=== PATIENT | female | born 1975 | race Caucasian/White ===

== ENCOUNTER → 2021-08-13 08:23 | Outpatient (BNVA) | payer OTHER, SELFPAY | PROVIDERS: PCP Internal Medicine | DX: N20.0 Calculus of kidney (principal) | CPT/HCPCS: 99212 ==

== ENCOUNTER 2022-02-02 08:01 | Outpatient (REF) | payer OTHER, SELFPAY ==
--- NOTE | ~2022-02-02 | US_ITS ---
EXAMINATION: US RETROPERITONEAL LIMITED (RENAL ONLY) CLINICAL INFORMATION: Calculus of kidney. COMPARISON: US retroperitoneal limited (renal only) 04/03/2019 and 03/24/2018. CT abdomen and pelvis 03/29/2018. TECHNIQUE: Real-time imaging of the kidneys. FINDINGS: RIGHT KIDNEY: 8.3 x 3.3 x 4.9 cm (SAG x AP x TRV). The kidney is normal in size, contour, and echogenicity. Renal cortical thickness is normal. There is a 3 x 4 mm echogenic density with twinkle artifact in the lower pole suggestive of a stone. There is a 1.4 x 0.8 x 0.8 cm cyst in the upper pole. No hydronephrosis. LEFT KIDNEY: 11.5 x 4.3 x 7.2 cm (SAG x AP x TRV). The kidney is normal in size, contour, and echogenicity. Renal cortical thickness is normal. There is a 5 mm stone in the lower pole. No focal parenchymal lesions or hydronephrosis. US/US renal BI IMPRESSION: Bilateral renal stones. Small right renal cyst.
== END 2022-02-02 08:02 | disposition home or self-care (01) ==
LOC: HO.US 08:01
DX: N20.0 Calculus of kidney (principal)
CPT/HCPCS: 76775

== ENCOUNTER → 2022-02-10 09:52 | Outpatient (BNVA) | payer OTHER, SELFPAY | PROVIDERS: PCP Internal Medicine | DX: N20.0 Calculus of kidney (principal) | CPT/HCPCS: 99212 ==

== ENCOUNTER 2022-08-03 07:52 | Outpatient (REF) | payer OTHER, SELFPAY ==
--- NOTE | ~2022-08-03 | US_ITS ---
EXAMINATION: US RETROPERITONEAL LIMITED (RENAL ONLY) CLINICAL INFORMATION: Calculus of kidney. COMPARISON: Ultrasound retroperitoneal limited (renal only) 02/02/2022 . TECHNIQUE: Real-time imaging of the kidneys. FINDINGS: RIGHT KIDNEY: 10.1 x 4.9 x 4.4 cm (SAG x AP x TRV). The kidney is normal in size and echogenicity. Renal cortical thickness is normal. No hydronephrosis. 1.2 cm right upper pole cyst. 1.2 cm right mid renal cyst. 4 mm echogenicity in the lower pole, possibly a stone. LEFT KIDNEY: 12.6 x 5.3 x 5.4 cm (SAG x AP x TRV). The kidney is normal in size, contour, and echogenicity. Renal cortical thickness is normal. No focal parenchymal lesions or hydronephrosis. Echogenic, shadowing 6 mm right upper pole calculus. US/US renal BI IMPRESSION: No significant change from prior study.
== END 2022-08-03 07:53 | disposition home or self-care (01) ==
LOC: HO.US 07:52
DX: N20.0 Calculus of kidney (principal)
CPT/HCPCS: 76775

== ENCOUNTER 2023-01-07 09:59 | Outpatient (REF) | payer OTHER, SELFPAY ==
--- NOTE | ~2023-01-07 | XR_ITS ---
EXAMINATION: XR ABDOMEN KUB CLINICAL INDICATION: Renal calculus. COMPARISON: Renal ultrasound dated 08/03/2022, CT scan of the abdomen and pelvis dated 03/29/2018. TECHNIQUE: AP view of the abdomen. FINDINGS: A 0.6 cm radiopaque density overlies the region of the right kidney. No radiopaque densities are seen overlying the left kidney or along the expected courses of the ureters bilaterally. There is a nonobstructive bowel gas pattern. Mild gas and stool seen within the colon distally to the rectum. Mild facet arthropathy is seen at L4-L5 and L5-S1. An IUD is noted overlying the mid pelvis. XR/XR KUB IMPRESSION: 1. 0.6 cm radiopaque density overlying the region of the right kidney could represent the previously seen right intrarenal calculus.
== END 2023-01-07 10:00 | disposition home or self-care (01) ==
LOC: HO.XRAY 09:59
PROVIDERS: Visit Provider Urology
DX: N20.0 Calculus of kidney (principal)
CPT/HCPCS: 74018

== ENCOUNTER → 2023-01-11 08:47 | Outpatient (BNVA) | payer OTHER, SELFPAY | PROVIDERS: PCP Internal Medicine; Visit Provider Urology | DX: N20.0 Calculus of kidney (principal) | CPT/HCPCS: 99212 ==

== ENCOUNTER 2023-02-10 08:56 | Day surgery (SDC) | payer OTHER, SELFPAY ==
[2023-02-05 14:37] VITALS: BMI 35.7
--- NOTE | 2023-02-09 09:26 | P.CONAN_ITS ---
Documented by User: Komal Edgar NP 02/09/23 09:27 HPI - Anesthesia Eval Consult details Narrative: 47yo F for ESWL No previous PMFSH Active Problems Active Problems: All Active Problems (Updated 02/05/23 @ 14:40 by Luci Lei RN) Calcium nephrolithiasis (Acute) Past Medical History Medical History Arthritis Calcium nephrolithiasis Crohn disease Fibromyalgia Hx of nephrolithotomy with removal of calculi Kidney stone Positive PPD Family History Family History Mother Cancer HTN (hypertension) Father Oral cancer Surgical History Surgical History H/O bilateral breast reduction surgery H/O lumpectomy Hx of cystoscopy Hx of dilation and curettage Social History Social History Household Members: Spouse and Children Housing: House Are you a primary medicare specialist to a significant other at home: Yes (minor daughter) Do you presently have visiting nurse or other home services: No Alcohol intake: never Patient Tobacco Use Status: Former Tobacco user Quit Date: 2018 Tobacco use type: Cigarette Cigarettes Per Day: 20 Years Smoked: 20 Use of substances other than those prescribed or required for medical reasons: Yes Substance Use Frequency: Occasionally Have you been hit, kicked, punched, or otherwise hurt by someone within the past year? If so, by whom?: No Are you DNR?: No Advance Directives: No Advance Directives Information Provided: Yes Advance Directives on File: No Recently lost weight without trying: No Eating poorly because of decreased appetite: No Nutrition Risks: No Nutritional Risk Patient : No FDLMP: N/A : No Poor oral hygiene: No Meds Allergies Allergy/AdvReac Type Severity Reaction Status Date / Time bee pollen [Bee Stings] Allergy Intermediate Anaphylaxis Verified 02/10/23 09:41 hydrocodone [From Vicodin] Allergy Intermediate rash Verified 02/10/23 09:41 Exam Exam Date and Time: February 09, 2023 0926 Height,Weight and Vital Signs: Height 5 ft 5 in Weight 97.522 kg Assessment and Plan Assessment Anesthesia Assessment: Chart Reviewed Documented by User: Brian Rudolph MD 02/10/23 11:02 PMFSH Past Medical History Medical History Arthritis Calcium nephrolithiasis Crohn disease Fibromyalgia Hx of nephrolithotomy with removal of calculi Kidney stone Positive PPD Patient : No Family History Family History Mother Cancer HTN (hypertension) Father Oral cancer Family history of problems with anesthesia: No Surgical History Surgical History H/O bilateral breast reduction surgery H/O lumpectomy Hx of cystoscopy Hx of dilation and curettage History of Problems with Anesthesia: No Social History Social History Household Members: Spouse and Children Housing: House Are you a primary medicare specialist to a significant other at home: Yes (minor daughter) Do you presently have visiting nurse or other home services: No Alcohol intake: never Patient Tobacco Use Status: Former Tobacco user Quit Date: 2018 Tobacco use type: Cigarette Cigarettes Per Day: 20 Years Smoked: 20 Use of substances other than those prescribed or required for medical reasons: Yes Substance Use Frequency: Occasionally Have you been hit, kicked, punched, or otherwise hurt by someone within the past year? If so, by whom?: No Are you DNR?: No Advance Directives: No Advance Directives Information Provided: Yes Advance Directives on File: No Recently lost weight without trying: No Eating poorly because of decreased appetite: No Nutrition Risks: No Nutritional Risk Patient : No FDLMP: N/A : No Poor oral hygiene: No Meds Allergies Allergy/AdvReac Type Severity Reaction Status Date / Time bee pollen [Bee Stings] Allergy Intermediate Anaphylaxis Verified 02/10/23 09:41 hydrocodone [From Vicodin] Allergy Intermediate rash Verified 02/10/23 09:41 Exam Airway Mallampati Class: I TM Dist: <=3cm Neck ROM: Full Heart: ok Lungs: ok Assessment and Plan Final Anesthetic Review Family History of Problems with Anesthesia: No History of Problems with Anesthesia: No NPO: Yes ASA Class: II Final Preanesthetic Review: No Changes in Pt Med Stat, Meds/Allgs Chart Reviewed, Consent Obtained/Reviewed and Anes Risks/Benef Reviewed Patient Risk: Intermediate Procedure Risk: Low Anesthetic Plan Anesthetic Plan: GA and Agree w/ Assess. and Plan Disposition: Standard PACU
--- NOTE | ~2023-02-10 | XR_ITS ---
EXAMINATION: XR ABDOMEN KUB CLINICAL INDICATION: Kidney stone COMPARISON: KUB radiograph from 01/07/2023, ultrasound renal from 08/03/2022 TECHNIQUE: AP view of the abdomen. FINDINGS: No radiopaque calcifications overlying the bilateral renal shadows or ureteral paths. Bowel gas is nonobstructive. T-shaped IUD noted in the pelvis. Osseous structures are intact. Visualized portions of the lower chest are unremarkable. Soft tissues are unremarkable. XR/XR KUB IMPRESSION: 1. No radiopaque calcifications overlying the bilateral renal shadows or ureteral paths. 2. Bowel gas is nonobstructive. 3. T-shaped IUD noted in the pelvis.
[2023-02-10 09:49] VITALS: BP 136/82; PULSE 75; RESP 16; TEMP 36.4; O2SAT 99
[2023-02-10] MEDS: Lactated Ringers 1,000 ML 100 ML IVCONT (09:58)
--- NOTE | 2023-02-10 10:14 | MHC.SHP ---
Pre-Procedural Eval Section A Date of Service: 02/10/23 The patient is an INPATIENT: No The History & Physical has been completed within 30 days and I have reviewed it.: Yes Section B Chief Complaint: Calculus of kidney Allergies: Allergies Allergy/AdvReac Type Severity Reaction Status Date / Time bee pollen [Bee Stings] Allergy Intermediate Anaphylaxis Verified 02/10/23 09:41 hydrocodone [From Vicodin] Allergy Intermediate rash Verified 02/10/23 09:41 Plan Diagnosis/Plan: Unchanged I have reviewed the history and physical and performed a pertinent physical examination on my patient. No changes have occurred unless specified. Right ESWL. Discussed risks to include but not limited to, blood in the urine, bruising to the skin, kidney hematoma, possible need for another procedure if a stone fragment obstructs the ureter while passing, possible need to repeat procedure if stone is not completely fragmented. Time Spent With Patient Time: Total time managing care of this patient today ____ minutes.
--- NOTE | 2023-02-10 12:00 | W.PM.OPN ---
Operative Note Operative Note Date of Service: 02/10/23 Narrative: PreOperative Diagnosis:? ? Right Renal stone Post Operative Diagnosis:?Right? Renal stone Procedure:?Right? ESWL Surgeon:?Dr Phuong Bello Anesthesia:? General Indications for procedure: The patient understands ESWL may be a staged procedure and subsequent intervention may be required based on imaging after ESWL.? They also understand? there is a risk of bleeding to the kidney, infection, damage to adjacent organs, and stone migration following the procedure. - Imaging 6mm x 5 mm right kidney lower pole stone Procedure: After informed consent was verified the patient was brought to the operating room and placed in a supine position.? Anesthesia was performed per protocol. Safety pause time-out was performed. Imaging was displayed in the room and laterality confirmed. ESWL was performed.?The stone was visualized on both fluoroscopy and ultrasound.? Shockwave lithotripsy was performed, the first 300 shocks at 60 hertz.? A pause for 3 minutes.? A total of 2500 shocks to a maximum of power of 18 with a maximum rate of 120 hertz.? Some fragmentation of the stone was appreciated. The patient tolerated the procedure well and was transferred to the recovery area upon completion. Complications: None
[2023-02-10 12:04] VITALS: BP 132/79; PULSE 64; RESP 16; TEMP 36.1; O2SAT 98
[2023-02-10 12:09] VITALS: BP 141/78; PULSE 60; RESP 16; O2SAT 98
[2023-02-10 12:14] VITALS: BP 143/70; PULSE 56; RESP 16; O2SAT 98
[2023-02-10 12:29] VITALS: BP 134/74; PULSE 54; RESP 16; O2SAT 98
[2023-02-10 12:44] VITALS: BP 153/93; PULSE 55; RESP 16; O2SAT 99
== END 2023-02-10 13:25 | disposition home or self-care (01) ==
PROVIDERS: Visit Provider Urology
PROC: (CPT 50590; principal; 2023-02-10 10:40)
DX: N20.0 Calculus of kidney (principal)
CPT/HCPCS: 50590; 74018; 81025; J0131; J0690; J1940; J3010

== ENCOUNTER 2023-03-01 14:57 | Outpatient (REF) | payer OTHER, SELFPAY | END 2023-03-01 14:58 | disposition home or self-care (01) | LOC: HO.LAB 14:57 | PROVIDERS: Visit Provider Urology | DX: N20.0 Calculus of kidney (principal) | CPT/HCPCS: 88300; 99212 ==

== ENCOUNTER 2023-03-01 14:57 | Outpatient (AMB) | payer OTHER, SELFPAY ==
--- NOTE | 2023-03-01 14:58 | A.OFFVIS_ITS ---
Intake Intake Visit Reasons: S/P Lithotripsy ESW Intake Note: pt is here for post up f/u Allergies bee pollen [Bee Stings] Allergy (Intermediate, Verified 03/01/23 14:59) Anaphylaxis hydrocodone [From Vicodin] Allergy (Intermediate, Verified 03/01/23 14:59) rash HPI HPI Comments History of Present Illness Details Aleksandra is a 47-year-old female who presents to the office s/p right ESWL. 03/01/23-- The patient is s/p right ESWL on 02/10/23 for right renal stone. The patient passed stones in the interim and brought them to office today. ----Office visit--01/11/2023--Aleksandra is a 47-year-old female who presents to the clinic for kidney stones follow-up and discussion of renal ultrasound results. The patient underwent renal calculi removal and stent placement procedure in the past. States had discomfort due to the stent.The patient is not taking any blood thinner currently. States taking magnesium and vitamin B6 supplement. Imaging: Renal US--08/03/22-- Right kidney: 4 mm stone in the lower pole. Left kidney:? 6 mm stone in the right upper pole KUB X-ray--01/07/2023--?0.6 cm in the right kidney.Evaluation today: Blood: Negative, Leukocytes: Negative.Reviewed imaging with the patient. Plan: Stone analysis was ordered. Recommended to consume adequate quantity of water. Continue vitamin B6 100 mg daily. ? Metabolic w/u 24-hour urine collection test. Follow-up after 3 months. Renal US prior. PFSH Medical History Arthritis Calcium nephrolithiasis Crohn disease Fibromyalgia Hx of nephrolithotomy with removal of calculi Kidney stone Positive PPD Surgical History H/O bilateral breast reduction surgery H/O lumpectomy Hx of cystoscopy Hx of dilation and curettage Family History Mother Cancer HTN (hypertension) Father Oral cancer Social History Household Members: Spouse and Children Housing: House Are you a primary managed care provider to a significant other at home: Yes (minor daughter) Do you presently have visiting nurse or other home services: No Alcohol intake: never Patient Tobacco Use Status: Former Tobacco user Quit Date: 2018 Tobacco use type: Cigarette Cigarettes Per Day: 20 Years Smoked: 20 Results AMB Urinalysis, Automated UA Leukoctes 0 Laury/uL Last Edit by Zach Souza CMA on 03/01/23 15:07 UA Nitrite Negative Last Edit by Zach Souza CMA on 03/01/23 15:07 UA Urobilinogen 0.2 mg/dL Last Edit by Zach Souza CMA on 03/01/23 15 :07 UA Protein 15 mg/dL Last Edit by Zach Souza CMA on 03/01/23 15:07 UA pH 7.0 Last Edit by Zach Souza CMA on 03/01/23 15:07 UA Blood 0 Hung/uL Last Edit by Zach Souza CMA on 03/01/23 15:07 UA Specific [place] 1.010 Last Edit by Zach Souza CMA on 03/01/23 15:07 UA Ketone Negative Last Edit by Zach Souza CMA on 03/01/23 15:07 UA Bilirubin 0 mg/dL Last Edit by Zach Souza CMA on 03/01/23 15:07 UA Glucose 0 mg/dL Last Edit by Zach Souza CMA on 03/01/23 15:07 Results Reviewed Results Reviewed: Laboratory Last Values Urine pH (Auto) 7.0 03/01/23 14:59 Specific [place] (Auto) 1.010 03/01/23 14:59 Urine Protein (Auto) 15 mg/dL 03/01/23 14:59 Glucose (UA)(Auto) 0 mg/dL 03/01/23 14:59 Urine Ketones (Auto) Negative 03/01/23 14:59 Urine Blood (Auto) 0 Hung/uL 03/01/23 14:59 Urine Nitrite (Auto) Negative 03/01/23 14:59 Urine Bilirubin (Auto) 0 mg/dL 03/01/23 14:59 Urine Urobilinogen (Auto) 0.2 mg/dL 03/01/23 14:59 Leukocyte Esterase (Auto) 0 Laury/uL 03/01/23 14:59 Assessment & Plan Assessment & Plan (1) Calcium nephrolithiasis: Code(s): N20.0 - Calculus of kidney Plan Stone analysis was ordered. Recommended to consume adequate quantity of water. Continue vitamin B6 100 mg daily. ? Metabolic w/u 24-hour urine collection test. Follow-up after 3 months. Renal US prior. Orders: Orders AMB Urinalysis Automated 03/01/23 Z13.9 - Encounter for screening, unspecified Surgical 03/01/23 N20.0 - Calculus of kidney Coding Level of Care Code Global (28654) Diagnoses Calcium nephrolithiasis N20.0
== END 2023-03-01 15:18 | disposition home or self-care (01) ==
LOC: HO.HUSH 14:57
PROVIDERS: Visit Provider Urology
DX: N20.0 Calculus of kidney (principal)
CPT/HCPCS: 99024